=== PATIENT | female | born 1945 | race American Indian/Alaskan Native ===

== ENCOUNTER 2017-09-05 09:36 | Emergency (ER) | payer MEDICARE, OTHER ==
[2017-09-05 09:45] VITALS: BMI 37.5
[2017-09-05 09:46] VITALS: RESP 18; O2SAT 100
--- NOTE | 2017-09-05 10:49 | C.PDOC ---
History Of Present Illness 72 year old female presents to the ED for evaluation of bilateral shoulder and neck pain which has been intermittent for 1 month. Patient was evaluated by her PMD for these symptoms and was given a script for physical therapy. Patient presents to the ED today because she wants to know "what is wrong with her." She has been managing symptoms with Tylenol and denies chest pain, shortness of breath, recent trauma/injury. Patient states she is right hand dominant. Chief Complaint (Nursing): Upper Extremity Problem/Injury History Per: Patient History/Exam Limitations: no limitations Onset/Duration Of Symptoms: Intermittent Episodes (1 month ) Current Symptoms Are (Timing): Still Present Quality: "Pain" Additional History Per: Patient Past Medical History Reviewed: Historical Data, Nursing Documentation, Vital Signs Vital Signs: Last Vital Signs Temp 98.2 F 09/05/17 09:45 Pulse 76 09/05/17 09:45 Resp 18 09/05/17 09:45 BP 124/74 09/05/17 09:45 Pulse Ox 100 09/05/17 11:44 - Medical History PMH: Anxiety, Back Problems, Depression, Diabetes, HTN, Hypercholesterolemia Surgical History: Cholecystectomy Denies: Pacemaker - [facility] Procedures BREAST DX PROCEDURE NEC (12/22/99) CORONAR ARTERIOGR-2 CATH (04/17/13) LEFT HEART CARDIAC CATH (04/17/13) LT HEART ANGIOCARDIOGRAM (04/17/13) SUBTOTAL MASTECTOMY (12/22/99) Family History: States: Unknown Family Hx - Social History Hx Tobacco Use: No Hx Alcohol Use: No Hx Substance Use: No - Immunization History Hx Tetanus Toxoid Vaccination: No Hx Influenza Vaccination: No Hx Pneumococcal Vaccination: No Review Of Systems Cardiovascular: Negative for: Chest Pain Respiratory: Negative for: Shortness of Breath Musculoskeletal: Positive for: Neck Pain, Shoulder Pain (bilateral ) Physical Exam - Physical Exam Appears: Non-toxic, No Acute Distress Skin: Normal Color, Warm, Dry Head: Atraumatic, Normacephalic Neck: No Midline Cervical Tenderness, Paracervical Tenderness, Supple Extremity: No Normal ROM (limited secondary to pain ), Tenderness (to anterior aspects of bilateral shoulders), Capillary Refill (less than 2 seconds) Pulses: Right Radial: Normal Neurological/Psych: Oriented x3, Normal Speech, Normal Cognition, Normal Sensation Gait: Steady ED Course And Treatment O2 Sat by Pulse Oximetry: 100 (on RA) Pulse Ox Interpretation: Normal - Other Rad shoulder xr X-Ray: Interpreted by Me, Viewed By Me, Read By Radiologist Interpretation: PROCEDURE: Radiographs of the Right Shoulder. HISTORY: pain. COMPARISON: No prior. FINDINGS: BONES: No fracture. JOINTS: Glenohumeral and acromioclavicular osteoarthritis. SOFT TISSUES: Normal. OTHER FINDINGS: None. IMPRESSION: No fracture or lytic lesion. Glenohumeral and acromioclavicular arthrosis shoulder XR X-Ray: Interpreted by Me, Viewed By Me, Read By Radiologist Interpretation: PROCEDURE: Radiographs of the Left Shoulder. HISTORY: Pain. COMPARISON: No prior. FINDINGS: BONES: Bone alignment and mineralization are normal. There is no acute displaced fracture or bone destruction. JOINTS: Normal. Glenohumeral and acromioclavicular joints preserved. No osteoarthritis. SOFT TISSUES: Normal. OTHER FINDINGS: None. IMPRESSION: No acute fracture or dislocation. cervical spine XR X-Ray: Interpreted by Me, Viewed By Me, Read By Radiologist Interpretation: PROCEDURE: Cervical Spine Radiographs. HISTORY: Pain. COMPARISON: None. FINDINGS: BONES: Alignment maintained. No fracture. Dens Intact. Anterior exuberant bridging osteophytosis C5. C6 and C7 most notably ; lesser non bridging osteophytosis C3 and C4. DISC SPACES: Normal. SOFT TISSUES: Normal. No prevertebral soft tissue swelling. 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 IMPRESSION: Cervical spondylosis. No fracture, subluxation or lytic lesion noted Medical Decision Making Medical Decision Making: Assessment: shoulder and neck pain Plan: Cervical Spine AP/LAT XR, Left shoulder XR, Right shoulder XR ordered and reviewed. On reassessment, patient is resting comfortably, showing no signs of distress and is stable for discharge. Patient will be discharged with instructions for shoulder/neck pain and is advised to follow up with orthopedist (Dr. Haas) water commissioner within 1-2 days for further evaluation. Disposition Counseled Patient/Family Regarding: Diagnosis, Need For Followup, Rx Given - Disposition Referrals: Leo Haas III, MD [Staff Provider] - Disposition: HOME/ ROUTINE Disposition Time: 11:42 Condition: STABLE Additional Instructions: follow up with orthopaedic doctor in 2 days call to make an appointment take medication as prescribed for pain return to hospital if symptoms worsens or progress Instructions: Arthralgia (ED) Forms: [facility] ([place]), General Discharge Instructions - Clinical Impression Clinical Impression: Joint pain, Shoulder pain - Scribe Statement The provider has reviewed the documentation as recorded by the Scribe (Ashli Patel) Provider Attestation: All medical record entries made by the Scribe were at my direction and personally dictated by me. I have reviewed the chart and agree that the record accurately reflects my personal performance of the history, physical exam, medical decision making, and the department course for this patient. I have also personally directed, reviewed, and agree with the discharge instructions and disposition.
--- NOTE | 2017-09-05 11:18 | RAD ---
PROCEDURE: Radiographs of the Left Shoulder HISTORY: Pain COMPARISON: No prior. FINDINGS: BONES: Bone alignment and mineralization are normal. There is no acute displaced fracture or bone destruction. JOINTS: Normal. Glenohumeral and acromioclavicular joints preserved. No osteoarthritis. SOFT TISSUES: Normal. OTHER FINDINGS: None. IMPRESSION: No acute fracture or dislocation.
--- NOTE | 2017-09-05 11:18 | RAD ---
PROCEDURE: Cervical Spine Radiographs. HISTORY: Pain. COMPARISON: None. FINDINGS: BONES: Alignment maintained. No fracture. Dens Intact. Anterior exuberant bridging osteophytosis C5. C6 and C7 most notably ; lesser non bridging osteophytosis C3 and C4. DISC SPACES: Normal. SOFT TISSUES: Normal. No prevertebral soft tissue swelling. 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 No fracture, subluxation or lytic lesion noted
--- NOTE | 2017-09-05 11:20 | RAD ---
PROCEDURE: Radiographs of the Right Shoulder HISTORY: pain COMPARISON: No prior. FINDINGS: BONES: No fracture JOINTS: Glenohumeral and acromioclavicular osteoarthritis. SOFT TISSUES: Normal. OTHER FINDINGS: None. IMPRESSION: No fracture or lytic lesion. Glenohumeral and acromioclavicular arthrosis
[2017-09-05 11:57] VITALS: BP 111/56; PULSE 64; TEMP 98
== END 2017-09-05 12:04 | disposition home or self-care (01) ==
LOC: C.ER 09:36
DX: M25.512 Pain in left shoulder (principal); M25.511 Pain in right shoulder; E11.9 Type 2 diabetes mellitus without complications; I10 Essential (primary) hypertension; E78.00 Pure hypercholesterolemia, unspecified

== ENCOUNTER 2017-09-13 10:11 | Emergency (ER) | payer MEDICARE, OTHER ==
[2017-09-13 10:12] VITALS: BMI 37.5
[2017-09-13 10:24] VITALS: BP 124/67; PULSE 57; RESP 18; TEMP 98.9; O2SAT 100
[2017-09-13] MEDS ORDERED: Mag&Al/Simet/Diphen/Lido 237 ML KIT PO STA (10:38)
--- NOTE | 2017-09-13 10:40 | C.PDOC ---
Time Seen by Provider: 09/13/17 10:25 Chief Complaint (Nursing): Cough, Cold, Congestion PMH - Medical History PMH: MS Disorders - Family History Family History: States: Unknown Family Hx - Immunization History Hx Tetanus Toxoid Vaccination: No Hx Influenza Vaccination: No Hx Pneumococcal Vaccination: No ED Course And Treatment O2 Sat by Pulse Oximetry: 100 Disposition - Disposition Forms: [employer] ([place])
--- NOTE | 2017-09-13 10:41 | C.PDOC ---
History Of Present Illness FRONT OF NECK/THROAT PAIN SINCE LAST NIGHT. PS WORSE AFTER GARGLING LAST NIGHT. +PAIN W SWALLOWING. NO FEVER, OTHER ASSOC SX. DENIES POSSIBLE SWALLOWED FB, RECENT [place]YMOUR FOOD EXAM NARD NONTOXIC HEENT PHARYNX CLEAR NO EXUDATE; NO STRIDOR NO DROOLING NECK SUPPLE NO SWELL, GOITER NODES NO CERV/SUBMAND NODES REMAINDER NEG Time Seen by Provider: 09/13/17 10:25 Chief Complaint (Nursing): Cough, Cold, Congestion History Per: Patient Onset/Duration Of Symptoms: Days Current Symptoms Are (Timing): Still Present Severity: Moderate Past Medical History Reviewed: Historical Data, Nursing Documentation, Vital Signs Vital Signs: Last Vital Signs Temp 98.9 F 09/13/17 10:20 Pulse 57 L 09/13/17 10:20 Resp 18 09/13/17 10:20 BP 124/67 09/13/17 10:20 Pulse Ox 100 09/13/17 11:53 - Medical History PMH: Anxiety, Back Problems, Depression, Diabetes, HTN, Hypercholesterolemia Surgical History: Cholecystectomy Denies: Pacemaker - [facility] Procedures BREAST DX PROCEDURE NEC (12/22/99) CORONAR ARTERIOGR-2 CATH (04/17/13) LEFT HEART CARDIAC CATH (04/17/13) LT HEART ANGIOCARDIOGRAM (04/17/13) SUBTOTAL MASTECTOMY (12/22/99) Family History: States: No Known Family Hx - Social History Hx Tobacco Use: No Hx Alcohol Use: No Hx Substance Use: No - Immunization History Hx Tetanus Toxoid Vaccination: No Hx Influenza Vaccination: No Hx Pneumococcal Vaccination: No Review Of Systems Except As Marked, All Systems Reviewed And Found Negative. Constitutional: Negative for: Fever, Chills ENT: Positive for: Throat Pain Respiratory: Negative for: Cough Gastrointestinal: Positive for: Vomiting Musculoskeletal: Positive for: Neck Pain Physical Exam - Physical Exam Appears: Non-toxic, Other (No acute respiratory distress) Skin: Normal Color, Warm Head: Atraumatic, Normacephalic Eye(s): bilateral: Normal Inspection Ear(s): Bilateral: Normal Nose: Normal Throat: Normal, No Exudate, No Drooling, Other (Pharynx clear) Neck: Normal, Supple, Other (no swelling,no stridor, no goiter) Lymphatic: Other (no cerv/submand nodes) Respiratory: Normal Breath Sounds, No Accessory Muscle Use, Rales, Rhonchi, No Stridor Gastrointestinal/Abdominal: Normal Exam, Soft, No Tenderness Extremity: Normal ROM Neurological/Psych: Oriented x3, Normal Speech, Normal Cognition, Normal Motor, Normal Sensation ED Course And Treatment O2 Sat by Pulse Oximetry: 100 (RA) Pulse Ox Interpretation: Normal Reevaluation Time: 11:49 Reassessment Condition: Improved (TOLERATING PO WO DIFF. PS MILD IMPROVE. DC FU ENT/PMD) Disposition Counseled Patient/Family Regarding: Diagnosis, Need For Followup, Rx Given - Disposition Referrals: Milton Adams MD [Staff Provider] - Disposition: HOME/ ROUTINE Disposition Time: 11:50 Condition: IMPROVED Additional Instructions: odynophagia. This is just the medical term for painful swallowing and can be due to problems in the mouth, throat, or esophagus. The most common causes are infections, foreign objects stuck in the throat, inflammation, acid reflux, tumors, or injuries. FOLLOW UP WITH YOUR PMD AND/OR ENT SPECIALIST FOR PERSISTENT PAIN. Prescriptions: Ibuprofen [Motrin] 600 mg PO Q6 #30 tab Forms: [facility] ([place]), General Discharge Instructions - Clinical Impression Clinical Impression: Odynophagia - Scribe Statement The provider has reviewed the documentation as recorded by the Kobe Yeh Provider Attestation: All medical record entries made by the Arieibe were at my direction and personally dictated by me. I have reviewed the chart and agree that the record accurately reflects my personal performance of the history, physical exam, medical decision making, and the department course for this patient. I have also personally directed, reviewed, and agree with the discharge instructions and disposition.
== END 2017-09-13 12:03 | disposition home or self-care (01) ==
LOC: C.ER 10:11
DX: R13.10 Dysphagia, unspecified (principal)

== ENCOUNTER 2018-11-03 07:31 | Outpatient (CLI) | payer MEDICARE, OTHER | END 2018-11-03 07:32 | disposition home or self-care (01) | LOC: C.LAB 07:31 | DX: N18.2 Chronic kidney disease, stage 2 (mild) (principal) ==

== ENCOUNTER 2018-11-18 07:25 | Outpatient (CLI) | payer MEDICARE, OTHER | END 2018-11-18 07:26 | disposition home or self-care (01) | LOC: C.LAB 07:25 | DX: E11.65 Type 2 diabetes mellitus with hyperglycemia (principal); I10 Essential (primary) hypertension; E04.2 Nontoxic multinodular goiter; E78.2 Mixed hyperlipidemia; E01.8 Other iodine-deficiency related thyroid disorders and allied conditions; E88.81 Metabolic syndrome and other insulin resistance; D51.9 Vitamin B12 deficiency anemia, unspecified; E55.9 Vitamin D deficiency, unspecified; E64.3 Sequelae of rickets; D64.9 Anemia, unspecified; N30.00 Acute cystitis without hematuria; N30.01 Acute cystitis with hematuria; E21.3 Hyperparathyroidism, unspecified ==